=== PATIENT | female | born 1995 | race Caucasian/White ===

== ENCOUNTER → 2018-12-20 | Outpatient (CLI) | payer OTHER ==
--- NOTE | 2018-12-20 17:31 | US ---
EXAM DESCRIPTION: Abdomen,Complete: Ultrasound. CLINICAL HISTORY: Nausea with vomiting COMPARISON: None Available. TECHNIQUE: Transabdominal scannin-dimensional and Doppler modes.. Technically difficult study due to patient body habitus. FINDINGS: Gallbladder: Normal size with no stones or sludge. Wall thickness 2.7 mm with no fluid. Nontender with transducer pressure. Common bile duct: 3.8 mm normal caliber. Liver: Echogenic throughout. Long axis of the right lobe is 15.9 cm. Dense with limited visualization of the posterior liver. Normal vascular flow and ducts not dilated. Capsule smooth where seen. No ascites. Pancreas: Included segments normal echogenicity and pancreatic duct not seen.. Abdominal aorta: Normal caliber from the proximal segment to the distal bifurcation. IVC: visualized; normal caliber. Spleen normal echogenicity; long axis measurement is 13.3 cm. Right kidney: 9.7 cm long axis. Normal cortical thickness and echogenicity. No hydronephrosis, no echogenic stones, no perirenal fluid. Left kidney: 10.3 cm long axis. Normal cortical thickness and echogenicity. 3.5 mm echogenic stone mid to lower aspect. No hydronephrosis. No perirenal fluid. Proximal ureter not seen. IMPRESSION: 1. Technically difficult study due to patient body habitus. Steatosis of the liver without enlargement. Otherwise unremarkable. 2. Gallbladder and common bile duct negative. Pancreas, spleen, and right kidney unremarkable. Normal caliber of the IVC and abdominal aorta. 3. 3.5 mm echogenic stone in the mid to lower left kidney. No hydronephrosis. Proximal ureter not seen. Electronically signed by: Bruce Milian MD 12/20/2018 5:29 PM CDT
== END ==
LOC: LAB.O 15:38
PROVIDERS: ATTEND Nurse Practitioner Family
DX: R11.2 Nausea with vomiting, unspecified (principal); K76.0 Fatty (change of) liver, not elsewhere classified

== ENCOUNTER 2019-01-07 10:32 | Emergency (ER) | payer SELFPAY ==
[2019-01-07] MEDS ORDERED: OPHTHALMIC SALT SOLUTION 120 ML BTTL ONE (10:33)
[2019-01-07] MEDS ORDERED: TETRACAINE HCL 0.5% OPHTH SOL 1 DROP ONE (10:34)
[2019-01-07 10:40] VITALS: TEMP 98.5; O2SAT 97
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
[2019-01-07] MEDS ORDERED: HYDROcodone 10MG/APAP 325MG 1 EA TAB PO ONE (10:58)
[2019-01-07] MEDS ORDERED: ONDANSETRON ODT 8 MG TAB ONE (11:47)
[2019-01-07] MEDS ORDERED: ONDANSETRON ODT 8 MG TAB SL ONE (11:51)
[2019-01-07 11:55] VITALS: BP 139/96
== END 2019-01-07 11:47 | disposition short-term general hospital (02) ==
LOC: ER 10:32
DX: S05.12XA Contusion of eyeball and orbital tissues, left eye, initial encounter (principal); H11.32 Conjunctival hemorrhage, left eye; H57.03 Miosis; F32.9 Major depressive disorder, single episode, unspecified; W20.8XXA Other cause of strike by thrown, projected or falling object, initial encounter; Y92.830 Public park as the place of occurrence of the external cause